=== PATIENT | female | born 1970 | race Caucasian/White ===

== ENCOUNTER 2022-09-08 21:20 | Outpatient (REF) | payer OTHER, SELFPAY ==
[2022-09-08 22:19] LABS: Thyroid Stimulating Hormone* 0.036 uIU/mL (0.270-4.20)
== END 2022-09-08 21:21 | disposition home or self-care (01) ==
LOC: LAB 21:20
PROVIDERS: PCP Internal Medicine Endocrinology, Diabetes & Metabolism; Visit Provider Internal Medicine Endocrinology, Diabetes & Metabolism
DX: E03.9 Hypothyroidism, unspecified (principal)
CPT/HCPCS: 36415; 84439; 84443

== ENCOUNTER 2023-11-17 22:54 | Outpatient (REF) | payer OTHER, SELFPAY ==
[2023-11-18 00:06] LABS: Free T4 Free Thyroxine* 1.38 ng/dL (0.70-1.85)
[2023-11-18 00:23] LABS: Thyroid Stimulating Hormone* < 0.015 uIU/mL (0.270-4.20)
== END 2023-11-17 22:55 | disposition home or self-care (01) ==
LOC: NPINS 22:54
PROVIDERS: PCP Internal Medicine Endocrinology, Diabetes & Metabolism; Visit Provider Internal Medicine Endocrinology, Diabetes & Metabolism
DX: E03.9 Hypothyroidism, unspecified (principal)
CPT/HCPCS: 84439; 84443

== ENCOUNTER 2024-05-06 08:00 | Outpatient (REF) | payer BC, SELFPAY ==
[2024-05-06 16:22] LABS: Free T4 Free Thyroxine* 1.23 ng/dL (0.70-1.85)
[2024-05-06 16:38] LABS: Thyroid Stimulating Hormone* < 0.015 uIU/mL (0.270-4.20)
== END 2024-05-06 08:01 | disposition home or self-care (01) ==
LOC: NPINS 08:00
PROVIDERS: PCP Internal Medicine Endocrinology, Diabetes & Metabolism; Visit Provider Internal Medicine Endocrinology, Diabetes & Metabolism
DX: E03.9 Hypothyroidism, unspecified (principal)
CPT/HCPCS: 84439; 84443